=== PATIENT | male | born 2000 | race Caucasian/White ===

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

== ENCOUNTER 2021-04-25 07:38 | Emergency (ER) | payer OTHER ==
[~2021-04-25] VITALS: Ht 177.8 cm; Wt 72.6 kg
[2021-04-25 08:29] LABS: ABSOLUTE EOSINOPHILS 0.1 thou/uL (0.0-0.7); ABSOLUTE LYMPHOCYTES 1.5 thou/uL (0.8-5.3); ABSOLUTE MONOCYTES 0.4 thou/uL (0.0-1.2); ABSOLUTE NEUTROPHILS 2.4 thou/uL (1.6-8.1); BASOPHILS 0.7 %; EOSINOPHILS 2.4 %; HEMOGLOBIN 15.1 gm/dL (14.0-18.0); LYMPHOCYTES 33.8 %; MCH 30.5 pg (26.0-34.0); MCHC 34.3 g/dL (28.0-37.0); MCV 88.9 fL (80.0-100.0); MONOCYTES 9.5 %; MPV 8.9 fl. (7.2-11.1); NUCLEATED RBCS 0 /100WBC; PLATELET COUNT* 191 thou/uL (150-400); POLYS 53.6 %; RBC 4.95 mil/uL (4.50-6.00); WBC 4.4 thou/uL (4.0-11.0)
[2021-04-25 08:49] LABS: CALCIUM 8.7 mg/dL (8.5-10.1); CREATININE 0.9 mg/dL (0.6-1.3); POTASSIUM 3.9 mmol/L (3.5-5.1)
[2021-04-25 08:53] LABS: ALBUMIN 3.8 g/dL (3.4-5.0); TOTAL BILIRUBIN 0.5 mg/dL (<0.1-1.0)
[2021-04-25 09:00] VITALS: BP 113/66
--- NOTE | 2021-04-26 11:32 | EKG ---
[place] [address] ELECTROCARDIOGRAM REPORT Name: SAVANA ALLEN Room: [facility]#: [id number] Admission: 04/25/21 Attend Phys: Discharge: 04/25/21 Date of : 01 Date of Service: 04/25/21813 Report #: [id number] THIS REPORT FOR: //name// [facility] ED Test Date: 2021-04-25 Test Time: 08:14:12 Pat Name: SAVANA ALLEN Department: Room: Gender: [employer]: : 2000 Requested By: Gilles Guardado Order Number: [id number] MD: Bill Staples Measurements Intervals [place] Rate: 42 P: 38 RI: 155 QRS: 91 QRSD: 109 T: 60 QT: 612 QTc: 512 Interpretive Statements Sinus bradycardia Borderline right axis deviation No previous ECG available for comparison Electronically Signed On 04-26-2021 11:31:56 CDT by Bill Staples [email or web address] <ELECTRONICALLY SIGNED> By: Bill Staples MD, [facility] 04/26/21 1131 3 3 Bill Staples MD, [facility] /EPI
== END 2021-04-25 09:00 | disposition home or self-care (01) ==
LOC: M.ERS 07:38
PROVIDERS: Family Medicine
DX: M54.6 Pain in thoracic spine (principal); Z90.49 Acquired absence of other specified parts of digestive tract; Z88.1 Allergy status to other antibiotic agents